=== PATIENT | female | born 1980 | race Caucasian/White ===

== ENCOUNTER → 2021-06-14 | Outpatient (CLI) | payer BC, MEDICAID ==
[~2021-06-14] MED LIST: METF10007 PO; SPIR25TA5 PO
[2021-06-14 09:17] LABS: ALANINE AMINOTRANSFERASE 43 U/L (12-78); ALBUMIN 3.5 g/dL (3.4-5.0); ANION GAP 4 mmol/L (5-15); CALCIUM 9.5 mg/dL (8.5-10.1); CHLORIDE 109 mmol/L (98-107); CREATININE 0.76 mg/dL (0.55-1.02)
[2021-06-14 09:19] LABS: ALKALINE PHOSPHATASE 50 U/L (45-117); BILIRUBIN,TOTAL 0.3 mg/dL (0.2-1.0); TOTAL PROTEIN 7.2 g/dL (6.4-8.2)
== END | disposition home or self-care (01) ==
LOC: STAR 07:53
PROVIDERS: ATTEND Specialist
DX: Z01.812 Encounter for preprocedural laboratory examination (principal); Z20.822 Contact with and (suspected) exposure to COVID-19; N80.0 Endometriosis of uterus; N94.5 Secondary dysmenorrhea; N92.1 Excessive and frequent menstruation with irregular cycle; D25.0 Submucous leiomyoma of uterus
CPT/HCPCS: 36415; 80053; U0003; U0005

== ENCOUNTER 2021-06-20 05:37 | Day surgery (SDC) | payer BC, MEDICAID ==
[~2021-06-20] VITALS: Ht 175.3 cm; Wt 124.0 kg
[2021-06-20] MEDS ORDERED: CHLORHEXIDINE 15 ML UDC PO ONE (06:00)
[2021-06-20 06:21] VITALS: BP 138/78
[2021-06-20 06:24] LABS: HCG UR SG 1.018 (1.003-1.030)
[2021-06-20] MEDS ORDERED: CEFOTETAN PMX 2GM/50ML 50 ML IVPB ONE (06:30)
[2021-06-20] MEDS ORDERED: LACTATED RINGERS 1,000 ML IV SCH (06:30)
[2021-06-20] MEDS ORDERED: BUPIVACAINE/PF 0.25% ONE (06:52)
[2021-06-20] MEDS ORDERED: FENTANYL PF 250 MCG/5ML ONE ×2 (07:04→08:12)
[2021-06-20] MEDS ORDERED: MIDAZOLAM 1 MG/ML, 2ML ONE (07:04)
[2021-06-20] MEDS ORDERED: ROCURONIUM 10 MG/ML,10ML ONE (07:25)
[2021-06-20] MEDS ORDERED: SUCCINYLCHOLINE 20 MG/ML, 10ML ONE (07:25)
[2021-06-20] MEDS ORDERED: PROPOFOL 10 MG/ML, 20ML ONE (07:25)
[2021-06-20] MEDS ORDERED: DEXAMETHASONE 4 MG/ML, 1ML ONE (07:25)
[2021-06-20] MEDS ORDERED: ONDANSETRON 2MG/ML, 2ML ONE ×2 (07:25→10:08)
[2021-06-20] MEDS ORDERED: SUGAMMADEX 200 MG/2 ML IVPush ONE (07:25)
[2021-06-20] MEDS ORDERED: KETOROLAC 30 MG/1 ML ONE (07:25)
[2021-06-20] MEDS ORDERED: SILVER NITRATE STICK TP ONE (08:30)
[2021-06-20] MEDS ORDERED: FENTANYL PF 100 MCG/2ML ONE ×3 (09:28→09:44)
[2021-06-20] MEDS ORDERED: MEPERIDINE/PF 25MG/0.5ML IVPush PRN (09:30)
[2021-06-20] MEDS ORDERED: ACETAMINOPHEN 325 MG TABLET PO PRN (09:30)
[2021-06-20] MEDS ORDERED: ONDANSETRON 2MG/ML, 2ML IVPush PRN (09:30)
[2021-06-20] MEDS ORDERED: LORazepam 2 MG/ML, 1ML IVPush PRN (09:30)
[2021-06-20] MEDS ORDERED: HYDROmorphone 1 MG/ML, 1ML INJ IVPush PRN (09:30)
[2021-06-20] MEDS ORDERED: PROMETHAZINE 25 MG/ML, 1ML IVPush PRN (09:30)
[2021-06-20] MEDS ORDERED: OXYcodone 5 MG/5 ML ORAL.SOL UDC ONE (09:44)
[2021-06-20] MEDS ORDERED: ACETAMINOPHEN 650 MG/20.3 ML UDC ONE (09:44)
[2021-06-20] MEDS: FENTANYL PF 100 MCG/2ML IV PRN ×4 (10:20→10:57)
[2021-06-20] MEDS: OXYcodone 5 MG/5 ML ORAL.SOL UDC PO PRN ×2 (11:35→12:33)
== END 2021-06-20 14:50 | disposition home or self-care (01) ==
LOC: OUT 05:37
PROVIDERS: ATTEND Specialist
DX: N92.0 Excessive and frequent menstruation with regular cycle (principal); N94.6 Dysmenorrhea, unspecified; D25.9 Leiomyoma of uterus, unspecified; D26.0 Other benign neoplasm of cervix uteri; N83.8 Other noninflammatory disorders of ovary, fallopian tube and broad ligament; N80.0 Endometriosis of uterus; N73.6 Female pelvic peritoneal adhesions (postinfective); G43.909 Migraine, unspecified, not intractable, without status migrainosus; E66.01 Morbid (severe) obesity due to excess calories; Z68.41 Body mass index [BMI] 40.0-44.9, adult; Z79.84 Long term (current) use of oral hypoglycemic drugs; Z79.899 Other long term (current) drug therapy
CPT/HCPCS: 58571; 81025; 88307; J0330; J1100; J1885; J2250; J2405; J2704; J3010; J7120; S2900